=== PATIENT | male | born 1965 | race Caucasian/White ===

== ENCOUNTER 2017-08-12 05:32 | Day surgery (SDC) | END 2017-08-12 10:58 | disposition home or self-care (01) ==

== ENCOUNTER → 2017-08-18 | Outpatient (CLI) | END | disposition home or self-care (01) ==

== ENCOUNTER 2018-01-17 11:43 | Day surgery (SDC) | END 2018-01-17 16:04 | disposition home or self-care (01) ==

== ENCOUNTER 2018-07-18 09:34 | Day surgery (SDC) | payer OTHER ==
[~2018-07-18] VITALS: Ht 180.3 cm; Wt 86.4 kg
[~2018-07-18 09:34] MED LIST: ALBU18HF INHALATION; FLUT1BLS INHALATION; IBUP-1545 PO; IPRA3AMP29 INHALATION; MONT10TA21 PO; PROCTOZONE-HC TOP; VIT D PO; [UNRECOGNIZED DRUG - SUPPLY]
[2018-07-18] MEDS ORDERED: BENADRYL (12:55)
[2018-07-18] MEDS ORDERED: REGLAN (12:55)
[2018-07-18] MEDS ORDERED: PANT20TA2 PO (12:55)
[2018-07-18] MEDS ORDERED: PRED10TA PO (12:55)
[2018-07-18] MEDS ORDERED: MONT10TA21 PO (12:55)
[2018-07-18 12:59] VITALS: Ht 180.3 cm; Wt 86.4 kg
[2018-07-18] MEDS ORDERED: ALBUTEROL 0.083% (NEB) 2.5 MG/3 ML AMP ONE (13:44)
--- NOTE | 2018-07-18 13:59 | PREAC ---
Date/Time of Note Date/Time of Note DATE: 07/18/18 TIME: 13:57 Anesthesia Eval and Record Evaluation Time Pre-Procedure Interview DATE: 07/18/18 TIME: 13:57 Age 53 Sex male NPO: 8 hrs Preoperative diagnosis GERD, Dysphagia Planned procedure EGD Past Medical History Past Medical History: Includes Pulm: Asthma Surgery & Anesthesia Issues No known issue Meds Anticoagulation: No Beta Jaime within 24 hr: No Reason Beta Jaime not given: Pt. not on B-Jaime Reported Medications [Benadryl] No Conflict Check 07/18/18 Montelukast Sodium* (Singulair*) 10 Mg Tablet, 10 MG PO QHS, #30 TAB 07/18/18 [Reglan] No Conflict Check 07/18/18 Pantoprazole* (Protonix*) 20 Mg Tablet.dr, 20 MG PO DAILY, TAB 07/18/18 Prednisone* (Prednisone*) 10 Mg Tab, 10 MG PO, TAB 07/18/18 Montelukast Sodium* (Singulair*) 10 Mg Tablet, 10 MG PO DAILY, #30 TAB 01/17/18 Ipratropium-Albuterol (Ipratropium-Albuterol) 0.5-3 Mg/3 Ml Ampul.neb, 3 ML INHALATION Q6, #30 VIAL 01/17/18 Ibuprofen* (Ibuprofen*) 800 Mg Tab, 800 MG PO QID, TAB 08/12/17 Albuterol Sulfate* (Ventolin HFA*) 18 Gm Hfa.aer.ad, 2 PUFF INHALATION Q6H, #1 INHALER 08/12/17 Discontinued Reported Medications [Compressor Nebulizer] No Conflict Check 01/17/18 [Vit D] No Conflict Check, PO DAILY 01/17/18 [Proctozone-Hc] No Conflict Check, TOP BID 01/17/18 Fluticasone/Vilanterol (Breo Ellipta 200-25 Mcg INH) 1 Each Blst.w.dev, 1 PUFF INHALATION DAILY, #1 INHALER 08/12/17 Meds reviewed: Yes Allergies Coded Allergies: prochlorperazine (Verified Allergy, Severe, CONTRACTURES, 01/17/18) Uncoded Allergies: fluoroquinolones (Allergy, Unknown, 07/18/18) Allergies Reviewed: Yes Labs/Studies Labs Reviewed: Reviewed by anesthesiologist test: N/A Pre-procedure Exam Airway: Adequate mouth opening Mallampati: Mallampati II Teeth: Normal Lung: Normal Heart: Normal ASA Physical Status ASA physical status: 2 Emergency: None Planned Anesthetic General/MAC: MAC Pre-operative Attestations Prior to commencing anesthesia and surgery, the patient was re-evaluated, there was verification of: *The patient's identity *The results of appropriate recent lab work and preoperative vital signs *The above evaluation not changing prior to induction *Anesthetic plan, risk benefits, alternative and complications discussed with patient/family; questions answered; patient/family understands, accepts and wishes to proceed. NAYAN HOBSON MD July 18, 2018 13:59
[2018-07-18 14:00] VITALS: BP 124/91; PULSE 69; RESP 38
[2018-07-18] MEDS ORDERED: PROPOFOL 20 ML ONE (14:00)
--- NOTE | 2018-07-18 14:12 | PAC ---
Date/Time of Note Date/Time of Note DATE: 07/18/18 TIME: 14:12 Post-Anesthesia Notes Post-Anesthesia Note Activity: WNL Respiratory function: WNL Cardiovascular function: WNL Mental status: Baseline Pain reasonably controlled: Yes Hydration appropriate: Yes Nausea/Vomiting absent: Yes NAYAN HOBSON MD July 18, 2018 14:12
== END 2018-07-18 15:22 | disposition home or self-care (01) ==
LOC: GIL 09:34
PROVIDERS: ATTEND Internal Medicine Gastroenterology
DX: K21.0 Gastro-esophageal reflux disease with esophagitis (principal); K44.9 Diaphragmatic hernia without obstruction or gangrene
CPT/HCPCS: 43239; 88305; 94664; Z7610

== ENCOUNTER 2018-07-27 14:47 | Day surgery (SDC) | payer OTHER ==
[2018-07-13 11:08] VITALS: BMI 27.3
[~2018-07-27] VITALS: Ht 180.3 cm; Wt 84.0 kg
[2018-07-27] VITALS (13 sets, daily range): BP systolic 97–140; BP diastolic 68–95; PULSE 66–88; RESP 11–24; Ht 180.3 cm; Wt 84.0 kg
[~2018-07-27 14:47] MED LIST changes: +BENADRYL; +CEFAZOLIN 2 GM/50 ML (PMX) 50 ML IVPB SCH; -FLUT1BLS INHALATION; +LACTATED RINGER'S 1,000 ML IV SCH; +PANT20TA2 PO; +PRED10TA PO; -PROCTOZONE-HC TOP; +REGLAN; -VIT D PO; -[UNRECOGNIZED DRUG - SUPPLY]
--- NOTE | 2018-07-27 16:49 | HPN ---
Date/Time of Note Date/Time of Note DATE: 07/27/18 TIME: 16:49 Interval H&P Admission Note Pt. seen H&P reviewed: No system changes STEVEN ANDUJAR July 27, 2018 16:49
[2018-07-27] MEDS ORDERED: POLYMYXIN/BACITRACIN 1L IRRIG ONE (17:13)
[2018-07-27] MEDS ORDERED: BUPIVACAINE 0.5% (SDV) 30 ML INJ ONE (17:50)
--- NOTE | 2018-07-27 17:58 | PREAC ---
Date/Time of Note Date/Time of Note DATE: 07/27/18 TIME: 17:54 Anesthesia Eval and Record Evaluation Time Pre-Procedure Interview DATE: 07/27/18 TIME: 17:54 Age 53 Sex male NPO: 2 hrs Preoperative diagnosis left carpal tunnel Planned procedure left carpal; runnel release Past Medical History Past Medical History: Includes Pulm: Asthma Surgery & Anesthesia Issues No known issue Meds Anticoagulation: No Beta Jaime within 24 hr: No Reason Beta Jaime not given: Other Reported Medications [Benadryl] No Conflict Check 07/18/18 Montelukast Sodium* (Singulair*) 10 Mg Tablet, 10 MG PO QHS, #30 TAB 07/18/18 [Reglan] No Conflict Check 07/18/18 Pantoprazole* (Protonix*) 20 Mg Tablet.dr, 20 MG PO DAILY, TAB 07/18/18 Prednisone* (Prednisone*) 10 Mg Tab, 10 MG PO, TAB 07/18/18 Montelukast Sodium* (Singulair*) 10 Mg Tablet, 10 MG PO DAILY, #30 TAB 01/17/18 Ipratropium-Albuterol (Ipratropium-Albuterol) 0.5-3 Mg/3 Ml Ampul.neb, 3 ML INHALATION Q6, #30 VIAL 01/17/18 Ibuprofen* (Ibuprofen*) 800 Mg Tab, 800 MG PO QID, TAB 08/12/17 Albuterol Sulfate* (Ventolin HFA*) 18 Gm Hfa.aer.ad, 2 PUFF INHALATION Q6H, #1 INHALER 08/12/17 Meds reviewed: Yes Allergies Coded Allergies: prochlorperazine (Verified Allergy, Severe, CONTRACTURES, 01/17/18) Uncoded Allergies: fluoroquinolones (Allergy, Unknown, 07/18/18) Allergies Reviewed: Yes Labs/Studies Labs Reviewed: Reviewed by anesthesiologist test: N/A Pre-procedure Exam Last vitals Vital Signs Date Temp Pulse Resp B/P (MAP) Pulse Ox O2 O2 Flow FiO2 Time Delivery Rate 07/27/18 98.0 88 16 140/95 96 Room Air 15:46 (110) Airway: Adequate mouth opening Mallampati: Mallampati III Teeth: Normal Lung: Normal Heart: Normal ASA Physical Status ASA physical status: 3 Emergency: None Planned Anesthetic General/MAC: MAC Pre-operative Attestations Prior to commencing anesthesia and surgery, the patient was re-evaluated, there was verification of: *The patient's identity *The results of appropriate recent lab work and preoperative vital signs *The above evaluation not changing prior to induction *Anesthetic plan, risk benefits, alternative and complications discussed with patient/family; questions answered; patient/family understands, accepts and wishes to proceed. LORENA MORGAN MD July 27, 2018 17:58
[2018-07-27] MEDS ORDERED: FENTAnyl 50 MCG/ML VIAL ONE (18:01)
[2018-07-27] MEDS ORDERED: LIDOCAINE 100 MG SYRINGE ONE (18:01)
[2018-07-27] MEDS ORDERED: PROPOFOL 100 ML ONE (18:01)
[2018-07-27] MEDS ORDERED: MIDAZOLAM 1 MG/ML 2 ML INJ ONE (18:01)
[2018-07-27] MEDS ORDERED: HYDROmorphONE 1 MG/5 ML IV SYRINGE IV ONE (18:38)
--- NOTE | 2018-07-27 18:38 | OPPN ---
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
--- NOTE | 2018-07-27 18:38 | PAC ---
Date/Time of Note Date/Time of Note DATE: 07/27/18 TIME: 18:38 Post-Anesthesia Notes Post-Anesthesia Note Last documented vital signs Vital Signs Date Temp Pulse Resp B/P (MAP) Pulse Ox O2 O2 Flow FiO2 Time Delivery Rate 07/27/18 98.0 88 16 140/95 96 Room Air 15:46 (110) Activity: WNL Respiratory function: WNL Cardiovascular function: WNL Mental status: Baseline Pain reasonably controlled: Yes Hydration appropriate: Yes Nausea/Vomiting absent: Yes LORENA MORGAN MD July 27, 2018 18:38
[2018-07-27] MEDS: HYDROmorphONE 1 MG/5 ML IV SYRINGE IV PRN ×5 (18:48→19:10)
[2018-07-27] MEDS ORDERED: MEPERIDINE 25 MG INJ IV PRN (19:00)
[2018-07-27] MEDS ORDERED: EPHEDrine 25 MG/5 ML SYG IV PRN (19:00)
[2018-07-27] MEDS ORDERED: ONDANSETRON 4 MG INJ IV PRN (19:00)
[2018-07-27] MEDS ORDERED: LABETALOL HCL 20MG INJ IV PRN (19:00)
[2018-07-27] MEDS ORDERED: hydrALAzine 20 MG INJ IV PRN (19:00)
[2018-07-27] MEDS ORDERED: OXYCODONE/ACETAMINOPHEN (5/325) TAB PO PRN (19:00)
--- NOTE | 2018-07-27 20:32 | OPR ---
DATE OF OPERATION: 07/27/2018 SURGEON: Bala Aguilar MD ANESTHESIA: Local MAC. PREOPERATIVE DIAGNOSIS: Left carpal tunnel syndrome. POSTOPERATIVE DIAGNOSIS: Left carpal tunnel syndrome. PROCEDURE: Left carpal tunnel release, open. OPERATIVE FINDINGS: Compression of the median nerve at carpal tunnel. INDICATION FOR PROCEDURE: A 53-year-old male with longstanding left carpal tunnel syndrome who faile d conservative management and elected to proceed with surgical intervention, understanding risks and benefits. DESCRIPTION OF PROCEDURE: The patient was seen in the preoperative area. All further questions were answered. Again, he gave informed consent, understanding the risks and benefits. He was taken to o perative suite, placed in supine position. Sedation was administered as was Ancef 2 grams IV. Tourn iquet was placed in left upper extremity and left upper extremity was prepped with ChloraPrep stick a nd draped in usual sterile fashion. Esmarch bandage was used to exsanguinate the extremity and tourn iquet was inflated to 250 mmHg. A 10 mL volume of 0.5% Marcaine was injected at the left wrist and h and to achieve local anesthesia. A 2 cm incision was utilized with sharp dissection carried down thr ough skin and subcutaneous tissue. The palmar aponeurosis was incised along its ulnar border and ret ractors were deepened to the transverse carpal ligament was divided along its ulnar border approximat jhoana 3 mm radial to the hook of the hamate. Retractor was placed proximally and distally and the prox imal and distal extents transverse carpal ligament were divided under direct visualization. Wound wa s copiously irrigated. Skin was closed with 5-0 nylon. Xeroform was applied over the wound followed by sterile gauze, Webril and bias dressing. Tourniquet was deflated after 10 minutes. The patient was awakened from anesthesia. He was taken to the postoperative suite in stable condition, tolerated procedure well without complication. SPECIMENS: None. ESTIMATED BLOOD LOSS: 5 mL. COUNTS: Sponge, instrument, needle counts correct. TOURNIQUET TIME: 10 minutes. CONDITION ON DISCHARGE: Stable. The patient was given a nonrefillable 5-day prescription of pain medication with surgery today. Dictated By: BALA GORDON/KARLA Conf#: [id number] [facility]#: [id number]
== END 2018-07-27 20:11 | disposition home or self-care (01) ==
LOC: SDS 14:47
PROVIDERS: ATTEND Orthopaedic Surgery Hand Surgery
DX: G56.02 Carpal tunnel syndrome, left upper limb (principal); J45.909 Unspecified asthma, uncomplicated
CPT/HCPCS: 64721; J1170; J2001; J2175; J2250; J2405; J3010; Z7512; Z7610